=== PATIENT | female | born 1970 | race Caucasian/White ===

== ENCOUNTER 2017-01-29 07:03 | Emergency (ER) | payer SELFPAY ==
[2017-01-29 07:20] VITALS: BP 109/90; PULSE 68; RESP 18; TEMP 98.8; O2SAT 98
--- NOTE | 2017-01-29 07:24 | UCPHY ---
H & P Time Seen by Provider: 01/29/17 07:22 Patient Type: New HPI/ROS: Chief complaint. Eyelid swelling HPI. 46-year-old female with 5 days of puffiness around the right eye. Increased puffiness past 3 days. She also 3 days ago developed blister tight lesions across the upper eyelid. Her vision is okay. She has no eye symptoms. She did notice swollen lymph nodes in for the ear and under the right jaw. She has no recent upper respiratory symptoms or fever. No eye history including contact lens or previous surgery. No fever. No injury or sense that she got anything in her eye. No similar symptoms previously ROS Constitutional. no fever/chills, no weakness Eyes. No problems with vision. Puffiness to especially the right upper eyelid. Blister type lesions on the upper eyelid. ENT. no sore throat, no nasal drainage. Swollen lymph nodes in front of right ear and under right jaw Cardiovascular. no chest pain Respiratory. no shortness of breath, no cough Abdominal. no abdominal pain, no nausea/vomiting, no diarrhea . no problems urinating MS. no calf pain/swelling, no neck/back pain, no joint pain Skin. no rash Lymph. no swollen glands Neuro. no headache, no dizziness, no difficulty walking or with speech Past Medical/Surgical History: Healthy Social History: , nonsmoker, no alcohol Smoking Status: Never smoked Physical Exam: General Appearance: Alert well-developed female mild distress vital signs are stable Eyes: Pupils equal and round no pallor or injection. Puffiness to the upper eyelid. Blister type lesions across the upper eye lid. ENT, Mouth: Mucous membranes are moist. No lesions on the nose. Tympanic membranes are normal. Pharynx without injection. Lymphadenopathy anterior to the right ear and right submandibular. No other lesions noted in scalp Respiratory: There are no retractions, lungs are clear to auscultation. Cardiovascular: Regular rate and rhythm. Gastrointestinal: Abdomen is soft and nontender, no masses, bowel sounds normal. Neurological: Awake and alert, sensory and motor exams grossly normal. Skin: Warm and dry, no rashes. Musculoskeletal: Neck is supple nontender. Extremities symmetrical, full range of motion. Psychiatric: Patient is oriented X 3, there is no agitation. Constitutional: Initial Vital Signs Temperature (C) 37.1 C 01/29/17 07:16 Heart Rate 68 01/29/17 07:16 Respiratory Rate 18 01/29/17 07:16 Blood Pressure 109/90 H 01/29/17 07:16 O2 Sat (%) 98 01/29/17 07:16 O2 Delivery Mode Room Air Allergies/Adverse Reactions: No Known Allergies Allergy (Unverified 01/29/17 07:16) Home Medications: Medication Instructions Recorded Acyclovir 800 mg PO 5XD #35 tab 01/29/17 Medical Decision Making Procedures: Alcaine and fluorescein are instilled in the right eye. The eye is examined under slit lamp. There is no evidence for foreign body, abrasion or ulceration , dendritic lesions. The fuorescein is irrigated out with the Alcaine ED Course/Re-evaluation: Visual acuity is performed. Patient is 20/20 in both eyes Patient remained stable on reexamination. Patient and I discussed treatment plan including criteria for return and importance of follow-up and further evaluation. She expresses understanding and agreement Differential Diagnosis: I think the patient has shingles. I considered cellulitis, ocular involvement, upper respiratory infection including viral versus bacterial etiology Departure - Departure Disposition: Home, Routine, Self-Care Clinical Impression: Shingles outbreak Condition: Good Instructions: Shingles (ED) Additional Instructions: Cool compresses 2-3 times daily next 2 days to decrease swelling. Acyclovir 5 times daily for the next week. Return for any eye irritation or redness or drainage. Recheck in 2-3 days if not improved by Ophthalmology. You are contagious as long as you have the blisters on the upper eyelid. It has spread by touch Referrals: Manpreet Jones MD [Medical Doctor] - 2-3 days, if not improved Prescriptions: Acyclovir 800 mg PO 5XD #35 tab - PQRS PQRS Measurement: 134: Depression screening and followup, PRIME MD-PHQ2 (12 years and older) Over the last 2 weeks, how often have you been bothered by any of the following problems? 1. Feeling down, depressed, or hopeless? 2. Little interest or pleasure in doing things? Patient answered no to both 1 and 2 130: Documentation of medications. Reviewed all patient medications, doses, route and frequency. 226: Do you smoke? No.
== END 2017-01-29 07:57 | disposition home or self-care (01) ==
LOC: CED 07:03
DX: B02.9 Zoster without complications (principal)
CPT/HCPCS: 99203-PO; G0463-PO